=== PATIENT | male | born 1970 | race Caucasian/White ===

== ENCOUNTER 2016-08-31 09:12 | Day surgery (SDC) | payer OTHER ==
[~2016-08-31 09:12] MED LIST: Lactated Ringers 1,000 ML IV SCH; Lidocaine 1%/Sod Bicarbonate in NS 8.4% 1 ML Syringe PRN; Sodium Chloride 0.9% 10 ML Syringe FLUSH PRN; fentaNYL 250 MCG/5 ML SDV ONE
[2016-08-31] MEDS ORDERED: Bupivacaine 0.5%/EPINEPHrine 1:200,000 50 ML MDV ONE (09:44)
[2016-08-31] MEDS ORDERED: Lidocaine 1% with EPINEPHrine 1:100,000 20 ML MDV ONE (09:44)
--- NOTE | 2016-08-31 10:51 | PCM.PREANE ---
Preanesthetic Assessment - Anesthesia/Transfusion/Family Hx Anesthesia History: Prior Anesthesia Without Reaction Family History of Anesthesia Reaction: No Transfusion History: Prior Transfusion Without Reaction Intubation History: Unknown - Review of Systems General: No Symptoms Pulmonary: No Symptoms Cardiovascular: No Symptoms Gastrointestinal: No Symptoms Neurological: No Symptoms Other: Reports: None, Diabetes (BS 140 @ 0950), Thyroid Problems (pt takes synthroid, ) - Physical Assessment NPO Status Date: 08/30/16 NPO Status Time: 23:00 Pulse: 73 O2 Sat by Pulse Oximetry: 96 Respiratory Rate: 16 Blood Pressure: 133/88 Temperature: 97.9 C Vital Signs: Last Vital Signs Temp 36.6 C 08/31/16 09:15 Pulse 73 08/31/16 09:15 Resp 16 08/31/16 09:15 BP 133/88 08/31/16 09:15 Pulse Ox 96 08/31/16 09:15 Height: 1.83 m Weight: 97.069 kg ASA Class: 2 Mental Status: Alert & Oriented x3 Airway Class: Mallampati = 1 Dentition: Reports: Normal Dentition Thyro-Mental Finger Breadths: 3 Mouth Opening Finger Breadths: 3 ROM/Head Extension: Full Lungs: Clear to Auscultation, Normal Respiratory Effort Cardiovascular: Regular Rate, Regular Rhythm - Lab Values: Laboratory Last Values POC Glucose 140 mg/dL (70-105) H 08/31/16 09:50 - Allergies Allergies/Adverse Reactions: Allergies Allergy/AdvReac Type Severity Reaction Status Date / Time diphenhydramine HCl AdvReac Hallucinati Verified 08/30/16 14:36 [From Benadryl] ons meperidine AdvReac Hallucinati Verified 08/30/16 14:36 ons - Anesthesia Plan Beta Kamaljit: Metoprolol Med Last Dose Date: 08/31/16 Med Last Dose Time: 08:30 - Acknowledgements Anesthesia Type Planned: MAC Pt an Appropriate Candidate for the Planned Anesthesia: Yes Alternatives and Risks of Anesthesia Discussed w Pt/Guardian: Yes Pt/Guardian Understands and Agrees with Anesthesia Plan: Yes PreAnesthesia Questionnaire HEENT History: Reports: Cataract, Impaired Vision, Other (See Below) Other HEENT History: Wears glasses Cardiovascular History: Reports: Heart Failure (pt states CHF is believed to be due to past chemotherapy), Hypertension Respiratory History: Reports: Asthma (pt denies athma), Other (See Below) Other Respiratory History: URI, viral pneumonia Gastrointestinal History: Reports: None Genitourinary History: Reports: Renal Calculus ACTIVITIES COUNSELOR History: Reports: None Musculoskeletal History: Reports: None Neurological History: Reports: None Psychiatric History: Reports: Anxiety Endocrine/Metabolic History: Reports: Diabetes, Type II (BS 140 @ 950), Hypothyroidism Hematologic History: Reports: Anemia Immunologic History: Reports: None Oncologic (Cancer) History: Reports: Leukemia (hx AML) Dermatologic History: Reports: None - Past Surgical History Head Surgeries/Procedures: Reports: None HEENT Surgical History: Reports: None Cardiovascular Surgical History: Reports: None Respiratory Surgical History: Reports: None GI Surgical History: Reports: None Female Surgical History: Reports: None Male Surgical History: Reports: None, Lithotripsy (ESWL) Endocrine Surgical History: Reports: None Neurological Surgical History: Reports: None Musculoskeletal Surgical History: Reports: Other (See Below) Other Musculoskeletal Surgeries/Procedures:: L ankle surgery with hardware Oncologic Surgical History: Reports: Bone Marrow Transplant Other Oncologic Surgeries/Procedures: in the event of need for blood transfusion , patient would need irradiated blood only - SUBSTANCE USE Smoking Status *Q: Never Smoker Second Hand Smoke Exposure: No Recreational Drug Use History: No - HOME MEDS Home Medications: Home Meds Allopurinol [Zyloprim] 100 mg PO DAILY 08/18/14 [History] FLUoxetine [PROzac] 20 mg PO DAILY 08/18/14 [History] Levothyroxine [Synthroid] 88 mcg PO DAILY 08/18/14 [History] metFORMIN [Glucophage XR] 500 mg PO DAILY 08/18/14 [History] Cholecalciferol (Vitamin D3) [Vitamin D3] 5,000 unit PO DAILY 08/30/16 [History] Furosemide [Furosemide] 80 mg PO DAILY 08/30/16 [History] Ibuprofen 600 mg PO DAILY 08/30/16 [History] Losartan Potassium 100 mg PO DAILY 08/30/16 [History] Metoprolol Succinate 25 mg PO DAILY 08/30/16 [History] Mupirocin Cream [Bactroban Crm] 1 applic TOP TID 08/30/16 [History] Rosuvastatin Calcium 5 mg PO DAILY 08/30/16 [History] - CURRENT (IN HOUSE) MEDS Current Meds: Current Medications Lactated Ringer's (Ringers, Lactated) 1,000 mls @ 125 mls/hr IV ASDIRECTED JAKUB Stop: 08/31/16 23:00 Last Admin: 08/31/16 09:45 Dose: 125 mls/hr Lidocaine/Sodium Bicarbonate (Buffered Lidocaine 1% In Ns 8.4%) 0.25 ml .XX ONETIME PRN PRN Reason: Prior to IV Start Stop: 08/31/16 18:00 Last Admin: 08/31/16 09:44 Dose: 0.25 ml Sodium Chloride (Saline Flush) 10 ml FLUSH ASDIRECTED PRN PRN Reason: Keep Vein Open Stop: 08/31/16 18:00 Discontinued Medications Bupivacaine HCl/Epinephrine Bitart (Marcaine 0.5%/Epinephrine 1:200,000) Confirm Administered Dose 50 ml .ROUTE .STK-MED ONE Stop: 08/31/16 09:45 Fentanyl (Sublimaze) Confirm Administered Dose 250 mcg .ROUTE .STK-MED ONE Stop: 08/31/16 07:58 Lidocaine/Epinephrine (Xylocaine 1% With Epinephrine 1:100,000) Confirm Administered Dose 20 ml .ROUTE .STK-MED ONE Stop: 08/31/16 09:45
[2016-08-31] MEDS ORDERED: Propofol 200 MG/20 ML SDV ONE ×2 (11:18→11:33)
[2016-08-31] MEDS ORDERED: fentaNYL 100 MCG/2 ML SDV ONE (11:20)
[2016-08-31] MEDS ORDERED: Midazolam 1 MG/ML 2 ML SDV ONE (11:23)
[2016-08-31] MEDS ORDERED: Ondansetron 4 MG/2 ML SDV ONE (11:37)
[2016-08-31] MEDS ORDERED: Ketorolac 30 MG/ML SDV ONE (11:37)
--- NOTE | 2016-08-31 11:43 | PCM48HPAN ---
Post Anesthesia Note - EVALUATION WITHIN 48HRS OF ANESTHETIC Vital Signs in Normal Range: Yes Patient Participated in Evaluation: Yes Respiratory Function Stable: Yes Airway Patent: Yes Cardiovascular Function Stable: Yes Hydration Status Stable: Yes Pain Control Satisfactory: Yes Nausea and Vomiting Control Satisfactory: Yes Mental Status Recovered: Yes
--- NOTE | 2016-08-31 11:45 | PCM.OPNOTE ---
- General Post-Op/Procedure Note Date of Surgery/Procedure: 08/31/16 Operative Procedure(s): Excision of a left forearm mass Findings: Approximately 1 1/2-2 cm soft tissue lesion Pre Op Diagnosis: Soft tissue left forearm mass Post-Op Diagnosis: Same Anesthesia Technique: Local, MAC Primary Surgeon: Titus Perkins Pathology: Lesion as described above EBL in mLs: 1 Complications: None Condition: Good Free Text/Narrative:: After adequate IV sedation and analgesia with monitoring the patient was placed in the supine position with his left arm extended. The left forearm was prepped and draped sterilely for the procedure. Local analgesia was infused directly over the soft tissue lesion. A 15 blade was used to make a 3 cm incision in the skin down through the subcutaneous fat. Flaps were raised superiorly and inferiorly bringing the lesion into the field. I used small Metzenbaums scissors to circumferentially excise away from surrounding tissues. It was removed completely and placed in formalin. Cautery was used for hemostasis. I irrigated out the field. I then closed the skin with several interrupted 4-0 Dermalon sutures. Dermabond was used for the dressing. There were no procedural complications.
[2016-08-31 12:39] VITALS: BP 130/80
== END 2016-08-31 12:45 | disposition home or self-care (01) ==
LOC: JD.SDS 09:12
PROVIDERS: ATTEND Surgery
PROC: 0HBEXZZ Excision of Left Lower Arm Skin, External Approach (ICD-10-PCS; principal; 2016-08-31)
DX: D21.12 Benign neoplasm of connective and other soft tissue of left upper limb, including shoulder (principal); J06.9 Acute upper respiratory infection, unspecified; I50.9 Heart failure, unspecified; I10 Essential (primary) hypertension; E11.9 Type 2 diabetes mellitus without complications; J45.909 Unspecified asthma, uncomplicated; Z79.84 Long term (current) use of oral hypoglycemic drugs
CPT/HCPCS: 25075; 82962; 88305; 93005; J1885; J2250; J2405; J3010; J7120; 00400; J2704

== ENCOUNTER 2016-10-09 18:38 | Emergency (ER) | payer OTHER ==
[2016-10-09] MEDS ORDERED: Ondansetron 4 MG/2 ML SDV IVPUSH ONE (19:19)
[2016-10-09] MEDS ORDERED: Sodium Chloride 0.9% 1,000 ML IV STA (19:19)
[2016-10-09] MEDS ORDERED: Sodium Chloride 0.9% 10 ML Syringe FLUSH PRN (19:19)
[2016-10-09] MEDS ORDERED: Meclizine 12.5 MG Tab PO ONE (19:20)
[2016-10-09] MEDS ORDERED: Metoclopramide 10 MG/2 ML SDV IVPUSH ONE (22:41)
[2016-10-09] MEDS ORDERED: Metoclopramide 10 MG/2 ML SDV ONE (22:45)
[2016-10-09] MEDS ORDERED: Sodium Chloride 0.9% 1,000 ML IV SCH (23:15)
[2016-10-10 00:47] VITALS: BP 126/73
--- NOTE | 2016-10-10 01:08 | EDM.PDOC ---
ED HPI GENERAL MEDICAL PROBLEM - General Chief Complaint: Neurological Problem Stated Complaint: NAUSEA/VOMITING/DIZZY Time Seen by Provider: 10/09/16 19:00 Source of Information: Reports: Patient, Family History Limitations: Reports: No Limitations - History of Present Illness INITIAL COMMENTS - FREE TEXT/NARRATIVE: The patient [place] in [place] and he stood up from eating breakfast at about 11 am to help clean up and he developed severe dizziness. The room was spinning and he had nausea and vomiting. Laying down helped. He denies headache, fever, chills, cough, ear pain, hearing loss, tinnitus, chest pain, shortness of breath, abdominal pain, numbness or weakness. This has never happened to him before. He had leukemia in the past. He has been in remission for many years. He has a history of hypertension. He was recently diagnosed with CHF. He is on lasix for that. This was related to the leukemia and treatment for that. Onset: Sudden Duration: Hour(s): (11am) Severity: Severe Improves with: Reports: Immobilization Worsens with: Reports: Movement Context: Reports: Activity (He was getting up to clean up after breakfast) Associated Symptoms: Reports: Nausea/Vomiting. Denies: Chest Pain, Cough, Fever /Chills, Headaches, Shortness of Breath - Related Data Allergies Allergy/AdvReac Type Severity Reaction Status Date / Time diphenhydramine HCl AdvReac Hallucinati Verified 08/30/16 14:36 [From Benadryl] ons meperidine AdvReac Hallucinati Verified 08/30/16 14:36 ons Home Meds: Home Meds Allopurinol [Zyloprim] 100 mg PO DAILY 08/18/14 [History] FLUoxetine [PROzac] 20 mg PO DAILY 08/18/14 [History] Levothyroxine [Synthroid] 88 mcg PO DAILY 08/18/14 [History] metFORMIN [Glucophage XR] 500 mg PO DAILY 08/18/14 [History] Cholecalciferol (Vitamin D3) [Vitamin D3] 3,000 unit PO DAILY 08/30/16 [History] Furosemide 40 mg PO DAILY 08/30/16 [History] Losartan Potassium 100 mg PO DAILY 08/30/16 [History] Mupirocin Cream [Bactroban Crm] 1 applic TOP TID 08/30/16 [History] Rosuvastatin Calcium 5 mg PO DAILY 08/30/16 [History] Metoprolol Tartrate 25 mg PO BID 10/09/16 [History] Past Medical History HEENT History: Reports: Cataract, Impaired Vision, Other (See Below) Other HEENT History: Wears glasses Cardiovascular History: Reports: Heart Failure, Hypertension Respiratory History: Reports: Asthma, Other (See Below) Other Respiratory History: URI, viral pneumonia Gastrointestinal History: Reports: None Genitourinary History: Reports: Renal Calculus PRIVATE EYE History: Reports: None Musculoskeletal History: Reports: None Neurological History: Reports: None Psychiatric History: Reports: Anxiety Endocrine/Metabolic History: Reports: Diabetes, Type II, Hypothyroidism Hematologic History: Reports: Anemia Immunologic History: Reports: None Oncologic (Cancer) History: Reports: Leukemia Dermatologic History: Reports: None - Past Surgical History Head Surgeries/Procedures: Reports: None HEENT Surgical History: Reports: None Cardiovascular Surgical History: Reports: None Respiratory Surgical History: Reports: None GI Surgical History: Reports: None Male Surgical History: Reports: None, Lithotripsy (ESWL) Endocrine Surgical History: Reports: None Neurological Surgical History: Reports: None Musculoskeletal Surgical History: Reports: Other (See Below) Other Musculoskeletal Surgeries/Procedures:: L ankle surgery with hardware Oncologic Surgical History: Reports: Bone Marrow Transplant Other Oncologic Surgeries/Procedures: in the event of need for blood transfusion , patient would need irradiated blood only Social & Family History - Tobacco Use Smoking Status *Q: Never Smoker Second Hand Smoke Exposure: No - Caffeine Use Caffeine Use: Reports: Coffee, Soda, Tea - Recreational Drug Use Recreational Drug Use: No Drug Use in Last 12 Months: No ED ROS GENERAL - Review of Systems Review Of Systems: See Below Constitutional: Reports: No Symptoms HEENT: Reports: No Symptoms Respiratory: Reports: No Symptoms Cardiovascular: Reports: No Symptoms Endocrine: Reports: No Symptoms GI/Abdominal: Reports: Nausea, Vomiting. Denies: Abdominal Pain : Reports: No Symptoms Musculoskeletal: Reports: No Symptoms Skin: Reports: No Symptoms Neurological: Reports: Dizziness ED EXAM, NEURO - Physical Exam Exam: See Below Exam Limited By: No Limitations General Appearance: Alert, No Apparent Distress Eye Exam: Bilateral Eye: EOMI, Nystagmus (Left, right, up and down), PERRL Ears: Normal External Exam, Normal Canal, Normal TMs Nose: Normal Inspection Throat/Mouth: Other (Mucus membranes are dry) Head Exam: Atraumatic, Normocephalic Neck: Normal Inspection, Supple, Non-Tender Respiratory/Chest: No Respiratory Distress, Lungs Clear, Normal Breath Sounds Cardiovascular: Regular Rate, Rhythm, No Edema, No Murmur GI/Abdominal: Soft, Non-Tender, No Organomegaly, No Mass Neurological: Alert, No Motor/Sensory Deficits, Oriented x 3 Course - Vital Signs Last Recorded V/S: Last Vital Signs Temp 98.1 F 10/10/16 00:20 Pulse 80 10/10/16 00:20 Resp 16 10/10/16 00:20 BP 126/73 10/10/16 00:20 Pulse Ox 100 10/10/16 00:20 - Orders/Labs/Meds Orders: Active Orders 24 hr Category Date Time Status EKG Documentation Completion [RC] STAT Care 10/09/16 19:19 Active Peripheral IV Care [RC] . DIRECTED Care 10/09/16 19:20 Active Head wo Cont [CT] Stat Exams 10/09/16 19:53 Taken ED Antiemetic Medication Reflex [OM.PC] Stat Oth 10/09/16 19:19 Ordered Peripheral IV Insertion Adult [OM.PC] Stat Oth 10/09/16 19:19 Ordered Labs: Laboratory Tests 10/09/16 10/09/16 Range/Units 19:25 19:25 WBC 6.80 (4.23-9.07) K/mm3 RBC 3.98 L (4.63-6.08) M/mm3 Hgb 13.6 L (13.7-17.5) gm/L Hct 38.9 L (40.1-51.0) % MCV 97.7 H (79.0-92.2) fl MCH 34.2 H (25.7-32.2) pg MCHC 35.0 (32.2-35.5) g/dl RDW Std Deviation 45.5 H (35.1-43.9) fL Plt Count 141 L (163-337) K/mm3 MPV 10.7 (9.4-12.3) fl Neut % (Auto) 78.5 H (34.0-67.9) % Lymph % (Auto) 17.6 L (21.8-53.1) % Calloway % (Auto) 3.5 L (5.3-12.2) % Eos % (Auto) 0 L (0.8-7.0) Baso % (Auto) 0.1 (0.1-1.2) % Neut # (Auto) 5.33 (1.78-5.38) K/mm3 Lymph # (Auto) 1.20 L (1.32-3.57) K/mm3 Calloway # (Auto) 0.24 L (0.30-0.82) K/mm3 Eos # (Auto) 0.00 L (0.04-0.54) K/mm3 Baso # (Auto) 0.01 (0.01-0.08) K/mm3 Sodium 139 (136-145) mEq/L Potassium 4.6 (3.5-5.1) mEq/L Chloride 102 (98-107) mEq/L Carbon Dioxide 30 (21-32) mEq/L Anion Gap 11.6 (5-15) BUN 30 H (7-18) mg/dL Creatinine 1.2 (0.7-1.3) mg/dL Est Cr Clr Drug Dosing 84.43 mL/min Estimated GFR (MDRD) > 60 (>60) mL/min BUN/Creatinine Ratio 25.0 H (14-18) Glucose 222 H (74-106) mg/dL Calcium 9.8 (8.5-10.1) mg/dL Total Bilirubin 0.7 (0.2-1.0) mg/dL AST 24 (15-37) U/L ALT 28 (16-63) U/L Alkaline Phosphatase 80 (46-116) U/L Troponin I < 0.017 (0.00-0.056) ng/mL Total Protein 7.6 (6.4-8.2) g/dl Albumin 4.5 (3.4-5.0) g/dl Globulin 3.1 gm/dL Albumin/Globulin Ratio 1.5 (1-2) Meds: Medications Discontinued Medications Generic Name Dose Route Start Last Admin Trade Name Freq PRN Reason Stop Dose Admin Diazepam 7 mg 10/09/16 20:28 10/09/16 20:39 Valium IVPUSH 10/09/16 20:29 7 mg ONETIME ONE Administration Diazepam 5 mg 10/09/16 22:59 10/09/16 23:05 Valium IVPUSH 10/09/16 23:00 5 mg ONETIME ONE Administration Sodium Chloride 1,000 mls @ 1,000 mls/hr 10/09/16 19:19 10/09/16 19:35 Normal Saline IV 10/09/16 20:18 1,000 mls/hr .BOLUS STA Administration Sodium Chloride 1,000 mls @ 150 mls/hr 10/09/16 23:15 10/09/16 23:08 Normal Saline IV 150 mls/hr ASDIRECTED JAKUB Administration Meclizine HCl 12.5 mg 10/09/16 19:20 10/09/16 19:38 Antivert PO 10/09/16 19:21 12.5 mg ONETIME ONE Administration Metoclopramide HCl 10 mg 10/09/16 22:41 10/09/16 22:44 Reglan IVPUSH 10/09/16 22:42 10 mg ONETIME ONE Administration Metoclopramide HCl Confirm 10/09/16 22:45 10/09/16 22:44 Reglan Administered 10/09/16 22:46 Not Given Dose 10 mg .ROUTE .STK-MED ONE Ondansetron HCl 4 mg 10/09/16 19:19 10/09/16 19:36 Zofran IVPUSH 10/09/16 19:20 4 mg ONETIME ONE Administration Sodium Chloride 10 ml 10/09/16 19:19 10/09/16 19:38 Saline Flush FLUSH 10 ml ASDIRECTED PRN Administration Keep Vein Open - Re-Assessments/Exams Free Text/Narrative Re-Assessment/Exam: 10/10/16 01:11 I ordered an IV NS 1L bolus, zofran 4mg IV and antivert 12.5mg by mouth. I also ordered a CT of his head that was negative. His CMP showed just an elevated blood sugar of 222. His troponin was negative and his EKG showed no acute changes. He did not get any better so I tried some valium 7mg IV. That did not help and he was more nauseated so I ordered some reglan 10mg IV. I did the Matt's Halpick maneuver and him and he had nystagmus to both the left and right but he was worse when sitting upright. I am concerned he may have something more going on. I would like to admit him here but we have no MRI available until Monday. I called [facility] and talked with Dr Gonzalez and she accepted the patient. When the patient was leaving, his told me that a sister in law just texted her and reminded her that the patient's brother had a cavernous hemangioma and presented with similar symptoms. I passed that on to [facility]. Departure - Departure Time of Disposition: 00:15 Disposition: DC/Tfer to Acute Hospital 02 Condition: Fair Clinical Impression: Vertigo Nausea and vomiting Qualifiers: Vomiting type: unspecified Vomiting Intractability: non-intractable Qualified Code(s): R11.2 - Nausea with vomiting, unspecified - Discharge Information Referrals: Tasha Hurt SENIOR WRITER [Primary Care Provider] - Forms: ED Department Discharge - My Orders Last 24 Hours: My Active Orders 10/09/16 19:19 EKG Documentation Completion [RC] STAT ED Antiemetic Medication Reflex [OM.PC] Stat Peripheral IV Insertion Adult [OM.PC] Stat 10/09/16 19:20 Peripheral IV Care [RC] . DIRECTED 10/09/16 19:53 Head wo Cont [CT] Stat - Assessment/Plan Last 24 Hours: My Active Orders 10/09/16 19:19 EKG Documentation Completion [RC] STAT ED Antiemetic Medication Reflex [OM.PC] Stat Peripheral IV Insertion Adult [OM.PC] Stat 10/09/16 19:20 Peripheral IV Care [RC] . DIRECTED 10/09/16 19:53 Head wo Cont [CT] Stat
--- NOTE | 2016-10-10 17:54 | CT ---
Head CT Technique: Multiple axial sections were obtained through the brain. Intravenous contrast was not utilized. Comparison: Previous head CT study of 11/13/09. Findings: Ventricles along with basal cisterns and sulci over the convexities are within normal limits for the patient's age. No abnormal parenchymal densities are seen. No evidence of intracranial hemorrhage. No midline shift or mass effect is seen. Bone window settings were reviewed which show no discrete calvarial abnormality. Visualized sinuses are clear. Impression: 1. No acute intracranial abnormality is seen. No significant change is seen from prior exam. Diagnostic code #1 Agree with preliminary report issued by [facility] ([facility] preliminary report dictated on 10/09/16, 9:59 PM Central Time)
== END 2016-10-10 00:20 ==
LOC: JD.ED 18:38
DX: R42 Dizziness and giddiness (principal); R11.2 Nausea with vomiting, unspecified; I11.0 Hypertensive heart disease with heart failure; I50.9 Heart failure, unspecified; J45.909 Unspecified asthma, uncomplicated; E11.9 Type 2 diabetes mellitus without complications; E03.9 Hypothyroidism, unspecified; Z88.8 Allergy status to other drugs, medicaments and biological substances; Z79.84 Long term (current) use of oral hypoglycemic drugs; Z79.899 Other long term (current) drug therapy; Z87.442 Personal history of urinary calculi; Z86.2 Personal history of diseases of the blood and blood-forming organs and certain disorders involving the immune mechanism
CPT/HCPCS: 36415; 70450; 80053; 84484; 85025; 93005; 96361; 96374; 96375; 96376; 99285; A9270; J2405; J2765; J3360; J7040; J7050

== ENCOUNTER 2022-07-28 13:31 | Emergency (ER) | payer OTHER ==
[2022-07-28] MEDS ORDERED: Sodium Chloride 0.9% 10 ML Syringe FLUSH PRN (13:44)
[2022-07-28] MEDS ORDERED: Aspirin 81 MG Tab.Chew PO ONE (13:55)
[2022-07-28] MEDS ORDERED: Aluminum Hydroxide/Magnesium Hydroxide/Simethicone Susp 30 ML Cup PO ONE (13:55)
[2022-07-28] MEDS ORDERED: Sodium Chloride 0.9% 1,000 ML IV ONE (13:56)
[2022-07-28] MEDS ORDERED: Ondansetron 4 MG/2 ML SDV IVPUSH ONE (13:56)
[2022-07-28 14:45] LABS: BASOPHILS ABSOLUTE AUTO 0.01 K/mm3 (0.01-0.08); BASOPHILS PERCENT AUTO 0.1 % (0.1-1.2); EOSINOPHILS ABSOLUTE AUTO 0.02 K/mm3 (0.04-0.54); EOSINOPHILS PERCENT AUTO 0.2 (0.8-7.0); HEMATOCRIT 42.8 % (40.1-51.0); HEMOGLOBIN 14.1 gm/dl (13.7-17.5); IMMATURE GRAN ABSOLUTE AUTO 0.02 K/mm3 (0.00-0.10); IMMATURE GRAN PERCENT AUTO 0.2 % (<=1.0); LYMPHOCYTES ABSOLUTE AUTO 1.19 K/mm3 (1.32-3.57); LYMPHOCYTES PERCENT AUTO 14.7 % (21.8-53.1); MEAN CORPUSCULAR HEMOGLOBIN 34.6 pg (25.7-32.2); MEAN CORPUSCULAR HGB CONC 32.9 g/dl (32.2-35.5); MEAN CORPUSCULAR VOLUME 104.9 fl (79.0-92.2); MEAN PLATELET VOLUME 11.2 fl (9.4-12.3); MONOCYTES ABSOLUTE AUTO 0.65 K/mm3 (0.30-0.82); NEUTROPHILS ABSOLUTE AUTO 6.23 K/mm3 (1.78-5.38); NEUTROPHILS PERCENT AUTO 76.8 % (34.0-67.9); PLATELET COUNT,PLT 141 K/mm3 (163-337); RED BLOOD CELL COUNT 4.08 M/mm3 (4.63-6.08); WHITE BLOOD CELL COUNT,WBC 8.12 K/mm3 (4.23-9.07)
[2022-07-28 14:58] LABS: INR 1.09; PROTHROMBIN TIME 11.6 SECONDS (9.7-12.0)
[2022-07-28 15:00] LABS: PTT,PARTIAL THROMBOPLSTIN TIME 25.4 SECONDS (21.7-31.4)
[2022-07-28 15:14] LABS: A/G RATIO 1.3 (1-2); ALBUMIN 4.1 g/dl (3.4-5.0); ANION GAP 15.3 (5-15); BILIRUBIN TOTAL 1.2 mg/dL (0.2-1.0); EST CRCL DRUG DOSING (CG) 47.42 mL/min; MAGNESIUM 1.9 mg/dL (1.8-2.4); POTASSIUM,K 4.3 mEq/L (3.5-5.1); PROTEIN TOTAL,TP 7.3 g/dl (6.4-8.2)
[2022-07-28 15:24] LABS: CALCIUM 8.7 mg/dL (8.5-10.1)
[2022-07-28 17:34] VITALS: BP 118/79; PULSE 80
== END 2022-07-28 17:05 | disposition home or self-care (01) ==
LOC: JD.ED 13:31
DX: R10.13 Epigastric pain (principal); R12 Heartburn; I11.0 Hypertensive heart disease with heart failure; I50.9 Heart failure, unspecified; J45.909 Unspecified asthma, uncomplicated; E11.9 Type 2 diabetes mellitus without complications; E03.9 Hypothyroidism, unspecified; Z79.899 Other long term (current) drug therapy; Z79.4 Long term (current) use of insulin
CPT/HCPCS: 36415; 71045; 80053; 83735; 83880; 84484; 85025; 85610; 85730; 93005; 96374; 99284; A9270; J2405; J3490